=== PATIENT | female | born 1955 | race Caucasian/White ===

== ENCOUNTER 2017-09-18 15:38 | Emergency (ER) | payer BC ==
[~2017-09-18] VITALS: Ht 167.6 cm; Wt 90.6 kg
[~2017-09-18 15:38] MED LIST: ACTOS30 MG PO; AMARYL4 MG PO; ARTHRI-FLEX TA1 EACH PO; ARTHRITIS OTC PO; ARTIFICIAL TEAR15 M1 BOTH EYES; BUSPAR10 MG PO; CALCIUM 600 +1 EAC7 PO; CALCIUM 600 MG1 EAC1 PO; CALCIUM600 MG PO; CIPRO500 MG PO; CORGARD20 MG PO; CRANBERRY300 MG PO; CRANBERRY500 MG PO; DESYREL100 MG PO; DIOVAN HCT 11 TABLET PO; ETODOLAC600 MG PO; FLAGYL500 MG PO; FLONASE16 G1 BOTH NARES; GABAPENTIN800 MG PO; GLIMEPIRIDE4 MG PO; HYDROCHLOROTH12.5 M3 PO; HYDROCHLOROTHIA25 MG PO; IRON325 M1 PO; IRON325 MG PO; KLOR-CON M2020 MEQ PO; LANTUS 10100 UNITS/ SC; LANTUS 3 M100 UNITS1 SC; LEVOTHYROXINE25 MCG PO; LISINOPRIL-HCT1 EACH PO; METAMUCIL TABLETS; METRONIDAZOLE500 MG PO; MICONAZOLE 324 GM VG; NADOLOL20 M1 PO; NEXIUM40 MG PO; NORVASC5 MG PO; RESTASIS 01 DROP/0.4 BOTH EYES; SPIRONOLACTONE50 MG PO; SYNTHROID25 MCG PO; TOUJEO SOL300 UNIT/1 SC; TRAMADOL HCL50 MG PO; TRAZODONE HCL100 MG PO; TRAZODONE HCL50 MG PO; TRICOR48 MG PO; ULTRAM50 MG PO; VANCOMYCIN HCL250 MG PO; VENTOLIN HFA18 GM IH; VITAMIN D1000 UNIT PO; VITAMIN E100 UNIT PO; VITAMIN E1000 UNIT PO; XIFAXAN550 MG PO; ZOFRAN ODT4 MG PO; [UNRECOGNIZED DRUG - OTHER]
[2017-09-18 16:34] LABS: HEMATOCRIT 38.8 % (36.0-46.0); MCH 31.6 PG (29.0-34.0); MCHC 34.8 G/DL (30.0-36.0); MCV 90.9 FL (83-99); MEAN PLAT.VOLUME 11.7 uM^3 (9.5-12.4); PLATELET COUNT 64 K/uL (156-360); RBC DIS.WIDTH-CV 13.6 % (11.8-14.6); RBC DIS.WIDTH-SD 45.5 % (39-53); RED BLOOD COUNT 4.27 M/uL (3.80-5.20); WHITE BLOOD COUNT 3.9 K/uL (4.1-10.2)
[2017-09-18 16:54] LABS: ANION GAP 8 MEQ/L (2-14); CHLORIDE 106 MEQ/L (99-109); POTASSIUM 3.9 MEQ/L (3.7-5.4); SAMPLE HEMOLYSIS CHECK 0; SAMPLE ICTERIC CHECK 0; SAMPLE LIPEMIA CHECK 1; SODIUM 142 MEQ/L (136-147)
[2017-09-18 16:59] LABS: GFR ESTIMATE (CALCULATED) > 59 mL/min/; GLUCOSE 203 mg/dL (70-99); UREA NITROGEN (BUN) 14 mg/dL (9-23)
[2017-09-18 17:06] LABS: TROP-I INTERPRETATION NEGATIVE; TROPONIN-I < 0.01 ng/mL (0.0-0.30)
[2017-09-18 19:32] LABS: DIRECT BILIRUBIN 0.2 mg/dL (0.0-0.3); TOTAL BILIRUBIN 0.8 MG/DL (0.0-1.0)
[2017-09-18 19:38] LABS: ALKALINE PHOSPHATASE 56 IU/L (3-129); LIPASE 62 U/L (1.0-51.0)
[2017-09-18 21:27] LABS: TROP-I INTERPRETATION NEGATIVE; TROPONIN-I < 0.01 ng/mL (0.0-0.30)
[2017-09-18 22:11] VITALS: BP 138/71
== END 2017-09-18 22:15 | disposition home or self-care (01) ==
LOC: EME 15:38
PROVIDERS: Physician Assistant
DX: R10.11 Right upper quadrant pain (principal); R07.9 Chest pain, unspecified; K74.60 Unspecified cirrhosis of liver; K76.6 Portal hypertension; I10 Essential (primary) hypertension; E11.9 Type 2 diabetes mellitus without complications; Z79.4 Long term (current) use of insulin
CPT/HCPCS: 71020; 71250; 74177; 80048; 80076; 83690; 84484; 85027; 93005; J7030